=== PATIENT | female | born 1950 | race Caucasian/White ===

== ENCOUNTER 2025-01-16 07:25 | Day surgery (SDC) | payer OTHER ==
[2025-01-03 16:11] VITALS: BMI 35.5
[2025-01-16 10:16] VITALS: TEMP 97.9
[2025-01-16 10:56] VITALS: PULSE 84
[2025-01-16 14:25] VITALS: BP 114/66; RESP 18
== END 2025-01-16 11:12 | disposition home or self-care (01) ==
LOC: JASU-ENDO 07:25
PROVIDERS: ATTEND Internal Medicine Gastroenterology
PROC: 0DBN8ZX Excision of Sigmoid Colon, Via Natural or Artificial Opening Endoscopic, Diagnostic (ICD-10-PCS; 2025-01-16)
PROC: 0DBK8ZZ Excision of Ascending Colon, Via Natural or Artificial Opening Endoscopic (ICD-10-PCS; 2025-01-16)
PROC: 0DBL8ZX Excision of Transverse Colon, Via Natural or Artificial Opening Endoscopic, Diagnostic (ICD-10-PCS; 2025-01-16)
PROC: 0DBP8ZX Excision of Rectum, Via Natural or Artificial Opening Endoscopic, Diagnostic (ICD-10-PCS; 2025-01-16)
PROC: 0DBH8ZX Excision of Cecum, Via Natural or Artificial Opening Endoscopic, Diagnostic (ICD-10-PCS; 2025-01-16)
PROC: 0DBK8ZX Excision of Ascending Colon, Via Natural or Artificial Opening Endoscopic, Diagnostic (ICD-10-PCS; principal; 2025-01-16 10:00)
DX: Z12.11 Encounter for screening for malignant neoplasm of colon (principal)
CPT/HCPCS: 82962; 88305-TC